=== PATIENT | male | born 2000 | race Caucasian/White ===

== ENCOUNTER 2021-07-23 22:39 | Emergency (ER) | payer OTHER ==
[~2021-07-23] VITALS: Ht 152.4 cm; Wt 68.2 kg
[2021-07-23 22:50] VITALS: BP 151/107
[2021-07-23 23:13] LABS: BASOPHILS % (AUTO) 0.3 % (0-1); EOSINOPHILS # (AUTO) 0.1 X10'3 (0-0.9); EOSINOPHILS % (AUTO) 0.6 % (0-6); HEMATOCRIT 47.8 % (42.0-52.0); HEMOGLOBIN 15.9 g/dl (14.0-17.9); LYMPHOCYTES # (AUTO) 1.8 X10'3 (1.1-4.8); LYMPHOCYTES % (AUTO) 16.8 % (21-51); MEAN CORPUSCULAR HEMOGLOBIN 28.5 PG (27.0-31.0); MEAN CORPUSCULAR HGB CONC 33.3 g/dL (33.0-36.5); MEAN CORPUSCULAR VOLUME 85.5 FL (78-98); MEAN PLATELET VOLUME 7.3 FL (7.4-10.4); MONOCYTES # (AUTO) 0.7 X10'3 (0-0.9); MONOCYTES % (AUTO) 6.4 % (2-12); NEUTROPHILS # (AUTO) 8.1 X10'3 (1.8-7.7); NEUTROPHILS % (AUTO) 75.9 % (42-75); PLATELET COUNT 334 X10'3 (140-440); RED BLOOD COUNT 5.59 X10'6 (4.70-6.10); RED CELL DISTRIBUTION WIDTH 13.1 % (11.5-14.5); WHITE BLOOD COUNT 10.7 X10'3 (4.5-11.0)
[2021-07-23 23:26] LABS: ALANINE AMINOTRANSFERASE 54 U/L (12-78); ALBUMIN 4.4 G/DL (3.4-5.0); ALBUMIN/GLOBULIN RATIO 1.2 (1.1-1.5); ALKALINE PHOSPHATASE 100 IU/L (46-116); AMYLASE 40 U/L (25-115); ANION GAP 14 (8-16); ASPARTATE AMINO TRANSFERASE 19 U/L (10-37); BILIRUBIN,TOTAL 0.7 MG/DL (0.1-1.0); BLOOD UREA NITROGEN 12 MG/DL (7-18); BUN/CREATININE RATIO 12.2 (5.4-32.0); CALCIUM 8.9 MG/DL (8.5-10.1); CHLORIDE 104 MMOL/L (99-107); CREATININE 0.98 MG/DL (0.60-1.10); GLUCOSE 93 MG/DL (70-104); LIPASE 68 U/L (73-393); POTASSIUM 3.6 MMOL/L (3.5-5.1); SODIUM 144 MMOL/L (135-145); TOTAL CARBON DIOXIDE 26.1 MMOL/L (24-32); eGFR > 90 ML/MIN
[2021-07-24] MEDS ORDERED: mag hydrox/Alum hydrox/simeth 30ml oral suspension PO ONE (00:45)
[2021-07-24] MEDS ORDERED: LIDOcaine Viscous 15ml cup MM ONE (00:45)
== END 2021-07-24 01:06 | disposition home or self-care (01) ==
LOC: ER 22:40
DX: R10.84 Generalized abdominal pain (principal); B34.9 Viral infection, unspecified; R11.2 Nausea with vomiting, unspecified; Z72.89 Other problems related to lifestyle
CPT/HCPCS: 36415; 80053; 82150; 83690; 85025; 99283

== ENCOUNTER 2025-04-24 07:05 | Emergency (ER) | payer OTHER ==
[~2025-04-24] VITALS: Ht 154.9 cm; Wt 79.7 kg
[2025-04-24 07:08] VITALS: BP 143/106; PULSE 68; RESP 15; TEMP 98.2; O2SAT 99
[2025-04-24] MEDS ORDERED: PRED20TA PO (08:20)
--- NOTE | 2025-04-24 08:20 | Physician Documentation ---
History of Present Illness ~ Chief Complaint: Eye Pain Stated Complaint: POISON OAK Time Seen by MD: 08:01 HPI Patient is here with a poison oak around his right eye the skin is swollen so the eye shut. He says he has a poison oak about everywhere it has been present for a few days. No throat swelling or trouble breathing or any fevers or chills or any other symptoms. Medication Reconciliation Allergies: Coded Allergies: No Known Allergies (Unverified , 07/23/21) Past Medical History Past Medical History: No Pertinent History Past Surgical History: noncontributory Alcohol Use: Other Occupation: employed Physical Exam Vital Signs: Temperature: 98.2, Source: Oral, Heart Rate: 68, Respiratory Rate: 15, BP: 143/106, Pulse Oximetry: 99, Weight: 79.700 Physical Exam General: Awake and Alert, no acute distress. HEENT: Conjunctiva pink, Sclera clear, Mucus Membranes moist. When I retracted the upper and lower eyelids of the conjunctiva is normal and he says his vision is normal. Neck: Supple without masses and tenderness. Resp: Unlabored. Lungs clear to auscultation bilaterally. Heart: Regular Rate and rhythm, normal S1 and S2 without murmur, rub or gallop. Abdomen: Soft and non tender no organomegaly Extremities: No cyanosis,clubbing or edema. Skin: Warm and Dry. Around his right eye there is swelling to the upper and lower eyelids skin around it erythematous it is not hot or warm to touch that is consistent with a poison oak dermatitis. He also has some scattered lesions throughout his extremities and no signs of anaphylaxis or respiratory compromise no wheezing. Neuro: GCS 15; no focal deficits Progress Results/Orders Results/Orders Completed Orders - JULES BONILLA MD Prednisone Tablet (Prednisone Tablet) (04/24/25 08:10) Vital Signs 04/24/25 07:08 Temp 98.2 Pulse 68 Resp 15 B/P (MAP) 143/106 Pulse Ox 99 Medical Decision Making Findings Patient is here with contact dermatitis from poison oak. He was given a dose of prednisone and prescription for a tapering Departure Disposition: 01 HOME / SELF CARE / HOMELESS Impression: Primary Impression: Poison oak dermatitis Condition: Stable Discharge Instructions: Poison [place] Dermatitis Additional Instructions: Take the prednisone until gone. Returned for worsening symptoms or any concerns. Referrals: NO PRIMARY CARE PROVIDER (PCP) Prescriptions Prednisone* (Prednisone*) 20 Mg Tablet 1 TAB PO DAILY for 9 Days, #18 TAB 60 mg p.o. daily for three days followed by 40 mg p.o. daily for three days followed by 20 mg p.o. daily for three days. Prov: JULES BONILLA MD 04/24/25 Education Educated: Patient Educated regarding: diagnosis, treatment, prognosis, need for follow up Signature Scribe Signature: no scribe Attestation: no scribe JULES BONILLA MD Apr 24, 2025 08:20
[2025-04-24] MEDS: predniSONE 20 mg tablet PO ONE (08:28)
== END 2025-04-24 08:59 | disposition home or self-care (01) ==
LOC: ER 07:06
DX: L23.7 Allergic contact dermatitis due to plants, except food (principal)
CPT/HCPCS: 99283; J7512